=== PATIENT | female | born 1970 ===

== ENCOUNTER 2018-01-25 02:00 | Inpatient (IN) | payer MEDICARE ==
[2018-01-25] MEDS ORDERED: Ondansetron 4 MG/2 ML SDV IVPUSH PRN (02:11)
[2018-01-25] MEDS ORDERED: Lactated Ringers 1,000 ML IV SCH (02:15)
[2018-01-25] MEDS ORDERED: Naloxone 0.4 MG/ML SDV IVPUSH PRN (02:16)
[2018-01-25] MEDS: HYDROmorphone/Normal Saline 15 MG/30 ML PCA IV PRN (02:48)
[2018-01-25] MEDS ORDERED: Midazolam 1 MG/ML 2 ML SDV ONE (05:23)
[2018-01-25] MEDS ORDERED: fentaNYL 250 MCG/5 ML SDV ONE ×2 (05:23→07:35)
[2018-01-25] MEDS ORDERED: Neostigmine Methylsulfate 1 MG/ML 5 ML Syringe ONE (05:24)
[2018-01-25] MEDS ORDERED: Ondansetron 4 MG/2 ML SDV ONE (05:24)
[2018-01-25] MEDS ORDERED: Rocuronium 50 MG/5 ML Vial ONE (05:24)
[2018-01-25] MEDS ORDERED: Propofol 200 MG/20 ML SDV ONE (05:24)
[2018-01-25] MEDS ORDERED: Glycopyrrolate 0.2 MG/ML 5 ML MDV ONE (05:24)
[2018-01-25] MEDS ORDERED: Dexamethasone 4 MG/ML SDV ONE (05:24)
[2018-01-25] MEDS ORDERED: Succinylcholine 200 MG/10 ML MDV ONE (05:24)
[2018-01-25] MEDS ORDERED: cefOXitin 2 GM in Sodium Chloride 0.9% 50 ML IV ONE (06:00)
[2018-01-25] MEDS ORDERED: Meropenem 500 MG SDV ONE ×3 (07:04→07:48)
[2018-01-25] MEDS ORDERED: Lactated Ringers 1,000 ML ONE (07:25)
[2018-01-25] MEDS ORDERED: Lidocaine 0.4%/D5W 2 GM/500 ML BAG IV SCH (08:00)
[2018-01-25] MEDS ORDERED: Ropivacaine 41 ML, Dexamethasone 8 MG, EPINEPHrine 0.4 MG, Sodium Chloride 0.9% 36.6 ML NERVRT SCH ×4 (08:00)
[2018-01-25] MEDS ORDERED: Ketamine 500 MG/5 ML MDV IV SCH (08:00)
[2018-01-25] MEDS ORDERED: Lidocaine 2% 100 MG/5 ML Syringe IVPUSH ONE (08:00)
[2018-01-25] MEDS ORDERED: Metoclopramide 10 MG/2 ML SDV IVPUSH PRN (11:00)
[2018-01-25] MEDS ORDERED: hydrOXYzine HCl 100 MG/2 ML SDV IM PRN (11:00)
[2018-01-25] MEDS ORDERED: diphenhydrAMINE 50 MG/ML SDV IVPUSH PRN (11:00)
[2018-01-25] MEDS ORDERED: Labetalol 20 MG/4 ML Syringe IVPUSH PRN (11:00)
[2018-01-25] MEDS: Pantoprazole 40 MG Vial IVPUSH SCH (11:02)
[2018-01-25] MEDS: Gabapentin 250 MG/5 ML Solution ML 470 ML Bottle PO SCH ×2 (13:10→20:14)
[2018-01-25] MEDS: Acetaminophen Soln 650 MG/20.3 ML UD Cup PO SCH ×2 (13:10→19:50)
[2018-01-25] MEDS: cefOXitin 2 GM in Sodium Chloride 0.9% 50 ML IV SCH ×2 (13:10→17:43)
[2018-01-25] MEDS: Dextrose 5%-Lactated Ringers 1,000 ML IV SCH ×2 (13:10→22:17)
[2018-01-25] MEDS ORDERED: MVI, Adult with Vitamin K 10 ML, Thiamine 100 MG, Chromium/Copper/Mang/Selen/Zn 1 ML in... IV SCH ×4 (16:00)
[2018-01-25] MEDS: Heparin Sodium 5,000 Units/ML Vial SUBCUT SCH (19:53)
[2018-01-26] MEDS: cefOXitin 2 GM in Sodium Chloride 0.9% 50 ML IV SCH ×4 (01:13→18:30)
[2018-01-26] MEDS: Acetaminophen Soln 650 MG/20.3 ML UD Cup PO SCH ×4 (02:28→20:55)
[2018-01-26] MEDS ORDERED: Iohexol 647 MG/ML 50 ML SDV PO STA (03:23)
[2018-01-26] MEDS: Dextrose 5%-Lactated Ringers 1,000 ML IV SCH (04:37)
[2018-01-26] MEDS: Heparin Sodium 5,000 Units/ML Vial SUBCUT SCH ×2 (07:52→20:55)
[2018-01-26] MEDS: Celecoxib 200 MG Cap PO SCH (07:52)
[2018-01-26] MEDS ORDERED: Dextrose 5%-Lactated Ringers 1,000 ML IV SCH (07:56)
[2018-01-26] MEDS ORDERED: TOPIRAMATE 75 MG PO SCH (09:00)
[2018-01-26] MEDS ORDERED: Non-Formulary Medication 1 Each (Aripiprazole [Abilify] 15 MG) PO SCH (09:00)
[2018-01-26] MEDS ORDERED: Non-Formulary Medication 1 Each (Amphetamine/Dextroamphetamine [Adderall Xr] 30 MG) PO SCH (09:00)
--- NOTE | 2018-01-26 09:02 | CR ---
UGI wo KUB HISTORY: eval R -Y GBP FINDINGS: After administration of oral contrast, upright views were obtained. Post operative changes gastric bypass. Surgical drains in place. No evidence for leak. Contrast passes freely into proximal small bowel loops. A few loops of dilated bowel in the left upper quadrant are seen on the delayed im age. If needed, follow-up exam could be obtained.
--- NOTE | 2018-01-26 09:02 | PN ---
DATE OF SERVICE: 01/26/2018 SUBJECTIVE: Larisa Cuellar is postoperative day 1. Pain has been controlled. Vital signs have been stable. She has been up ambulating, has no other concerns or questions. She would like with exception of restarting all her home medications. OBJECTIVE: GENERAL: Larisa is a 47-year-old female. VITAL SIGNS: TPR is 97.2, 65, 16, blood pressure 117/56. HEENT: Negative. NECK: Supple. HEART: Regular rate and rhythm. LUNGS: Clear. ABDOMEN: Dressings dry and intact. Abdominal binder is on. EXTREMITIES: Without peripheral edema. ASSESSMENT: Exploratory laparotomy with resection and revision of the JJ component of the Agueda-en-Y gastric bypass surgery, drainage of peritonitis abscess and enterotomy for tube decompression of the small bowel for a small bowel obstruction secondary to volvulus of the JJ with removal of necrosis of the small bowel, satish-omentitis abscess, marked distention of proximal small bowel. Date of surgery 01/25/2018. PLAN: 1. Step 4 gastric bypass diet. 2. Decrease IV to 80 mL per hour. 3. Discontinue Anaya. 4. Medications restarted are Adderall XR 30 mg daily, Abilify 15 mg p.o. b.i.d., topiramate 75 mg p.o. daily, Adderall 20 mg p.o. with lunch, Cymbalta 90 mg at bedtime, levothyroxine 150 mcg at bedtime, melatonin 20 mg at bedtime, Suvorexant 20 mg at bedtime. 5. Good pulmonary toilet. 6. We will evaluate p.r.n. or in a.m. Fátima Grimaldo PA-C /[id number]
[2018-01-26] MEDS: Amphetamine/Dextroamphetamine Salts 10 MG Cap.ER PO SCH (09:19)
[2018-01-26] MEDS: Gabapentin 250 MG/5 ML Solution ML 470 ML Bottle PO SCH ×3 (09:20→21:07)
[2018-01-26] MEDS: SCOPOLAMINE PATCH CHECK TOP SCH (09:20)
[2018-01-26] MEDS: ARIPiprazole 10 MG Tab PO SCH ×2 (09:30→21:01)
[2018-01-26] MEDS: buPROPion 100 MG Tab PO SCH ×3 (09:30→21:09)
[2018-01-26] MEDS ORDERED: DEXTROAMPHETAMINE PO SCH (12:00)
[2018-01-26] MEDS ORDERED: Amphetamine/Dextroamphetamine Salts 10 MG Cap.ER PO SCH (12:00)
[2018-01-26] MEDS ORDERED: AMPHETAMINE PO SCH (12:00)
[2018-01-26] MEDS: Pantoprazole 40 MG Vial IVPUSH SCH (13:18)
[2018-01-26] MEDS ORDERED: MVI, Adult with Vitamin K 10 ML, Thiamine 100 MG, Chromium/Copper/Mang/Selen/Zn 1 ML in... IV SCH ×4 (16:00)
[2018-01-26] MEDS: HYDROmorphone/Normal Saline 15 MG/30 ML PCA IV PRN (20:53)
[2018-01-26] MEDS ORDERED: DULOXETINE 90 MG PO SCH (21:00)
[2018-01-26] MEDS ORDERED: SUVOREXANT 20 MG PO SCH (21:00)
[2018-01-26] MEDS ORDERED: Non-Formulary Medication 1 Each (Melatonin [Melatonin] 20 MG) PO SCH (21:00)
[2018-01-26] MEDS ORDERED: DULoxetine 30 MG Cap PO SCH (21:00)
[2018-01-26] MEDS ORDERED: Melatonin 3 MG Tab PO SCH (21:00)
[2018-01-26] MEDS ORDERED: diphenhydrAMINE 25 MG Cap PO SCH (21:00)
[2018-01-26] MEDS ORDERED: Topiramate 25 MG Tab PO SCH (21:00)
[2018-01-26] MEDS ORDERED: LEVOTHYROXINE 150 MCG PO SCH (21:00)
[2018-01-26] MEDS: Lactobacillus Rhamnosus GG (Probiotic) Cap PO SCH (21:02)
[2018-01-27] MEDS: cefOXitin 2 GM in Sodium Chloride 0.9% 50 ML IV SCH ×2 (00:46→06:33)
[2018-01-27] MEDS: Acetaminophen Soln 650 MG/20.3 ML UD Cup PO SCH ×2 (01:19→09:03)
[2018-01-27] MEDS: Heparin Sodium 5,000 Units/ML Vial SUBCUT SCH (07:55)
[2018-01-27] MEDS: Celecoxib 200 MG Cap PO SCH (07:56)
[2018-01-27] MEDS: Amphetamine/Dextroamphetamine Salts 10 MG Cap.ER PO SCH (08:02)
[2018-01-27] MEDS: SCOPOLAMINE PATCH CHECK TOP SCH (08:05)
[2018-01-27] MEDS ORDERED: Acetaminophen/HYDROcodone 325-5 MG Tab PO PRN (08:08)
[2018-01-27] MEDS ORDERED: Cyanocobalamin (Vitamin B12) 1,000 MCG/ML SDV IM ONE (09:00)
[2018-01-27] MEDS: ARIPiprazole 10 MG Tab PO SCH (09:03)
[2018-01-27] MEDS: Gabapentin 250 MG/5 ML Solution ML 470 ML Bottle PO SCH (09:03)
[2018-01-27] MEDS: Lactobacillus Rhamnosus GG (Probiotic) Cap PO SCH (09:03)
[2018-01-27] MEDS: buPROPion 100 MG Tab PO SCH (09:04)
--- NOTE | 2018-01-28 08:38 | DISCH ---
ADMISSION DIAGNOSES: Partial small bowel obstruction, status post Agueda-en-Y gastric bypass surgery, unspecified surgical malabsorption, B12 deficiency, major depressive disorder, hypothyroidism, and history of Clostridium difficile. DISCHARGE DIAGNOSES: Exploratory laparotomy with resection and revision of the JJ component of the Agueda-en-Y gastric bypass surgery, drainage of peritonitis abscess and enterotomy for tube decompression for the small bowel for a small bowel obstruction secondary to volvulus of the JJ with removal of necrosis of the small bowel, staish-omentitis abscess, marked distention of proximal small bowel. Date of surgery 01/25/2018. HISTORY: Larisa Cuellar was transferred from [place], [place], with a partial small bowel obstruction. After preoperative evaluation and discussion of possible risks and possible complications, she wished to proceed with surgical procedure. HOSPITAL COURSE: Larisa had her surgery on 01/25/2018. She had no operative complications. On postop day #1, she was started on step-4 gastric bypass diet. Her home medications were restarted. She remained to be on the [employer]. On postop day #2, vital signs were stable, her pain was well managed, activity was good, and she was able to be discharged to home. PHYSICAL EXAMINATION: GENERAL: Larisa Cuellar is a 47-year-old female. She is alert and orientated. VITAL SIGNS: Weight is 178 pounds 12.7 ounces. Height 5 feet 2.9 inches. TPR is 97.6, 80, 16, and blood pressure 110/65. HEENT: Negative. NECK: Supple. HEART: Regular rate and rhythm. LUNGS: Clear. ABDOMEN: Incision blanca intact. No redness or drainage. FRANCO drain in midline is intact and draining a light red serosanguineous drainage. EXTREMITIES: Without peripheral edema. DISPOSITION: Discharged to home. CONDITION: Stable and improving. FOLLOWUP APPOINTMENT: Fátima Grimaldo PA-C, at [facility] on 02/03/2018 at 10:15 a.m. DISCHARGE MEDICATIONS: New Medications: 1. [place] 5/325 mg 1 to 2 every 4 hours p.r.n. pain, #40. 2. Milk of magnesia 30 mL, two were sent home with the patient to take one today when she gets home and one tomorrow. 3. Celebrex 200 mg oral daily, #14. 4. She is to resume her home medications. 5. Discontinue taking Toradol, iron supplement, vitamin B12, calcium, and multivitamin. DISCHARGE DIET: Step-4 gastric bypass diet. Drink 8 to 10 glasses of water a day. ACTIVITY: No lifting greater than 10 pounds for 6 weeks[address] Driving, do not drive while on pain medication. Shower/bathing, may shower. No tub bathing or swimming. DISCHARGE INSTRUCTIONS: Notify provider of any fever, increased pain, nausea, or vomiting. Keep site clean and dry. Wear abdominal binder for 6 weeks and then as tolerated. Special instruction, use incentive spirometer 10 times every hour while awake for 2 weeks. Empty, strip, measure, and record FRANCO drains 4 times a day and when half full.
--- NOTE | 2018-01-30 11:25 | OR ---
DATE OF PROCEDURE: 01/25/2018 PREOPERATIVE DIAGNOSIS: Small-bowel obstruction. POSTOPERATIVE DIAGNOSES: 1. 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 2. Perianastomotic abscess. 3. Marked distention of proximal small bowel. OPERATIVE PROCEDURE: Exploratory laparotomy with: 1. Resection and revision of jejunojejunostomy component of Agueda-en-Y gastric bypass (34972). 2. Drainage of perianastomotic intraabdominal abscess(89302). 3. Enterotomy for tube decompression of the small bowel (88625). ANESTHESIA: General. INDICATIONS FOR PROCEDURE: This is a 47-year-old status post Agueda-en-Y gastric bypass in 2004, presenting with a picture of a small-bowel obstruction likely related to volvulus. She was transferred from [place] overnight and is undergoing exploratory laparotomy presently. The potential risks of the procedure including bleeding, infection, injury to the underlying viscera, possible leaks from GI tract closures or recurrence of the problem over time, and lastly remote possibility of cardiopulmonary, septic, or hemorrhagic complications leading to were all discussed, and the patient wishes to proceed. DETAILS OF PROCEDURE: The patient was taken to the operating room and placed in a supine position. After general endotracheal anesthesia was induced, the abdomen was prepped and draped. Of note at the conclusion of the procedure, when they became available, bilateral subcostal transversus abdominis plane blocks were placed with ultrasound guidance and using the standard solution. After the area was prepped and draped, a midline incision from the umbilicus roughly a handsbreadth upward toward the xiphoid was made and carried down through the full-thickness abdominal wall. Upon entering the peritoneal cavity, the patient was noted to have some slightly blood-tinged fluid. The area of dissection was easily identified, and this was an area of focal intense volvulus in the area of the jejunojejunostomy. The volvulus was fairly localized, but was tight enough that there was significant hemorrhagic necrosis of a portion of the small bowel involved in the volvulus. There was a perianastomotic abscess present, which at this time was evacuated and cultures then obtained. At this point, 3 components of the jejunojejunostomy were divided with a CK stapler and the underlying mesentery of those sets of bowel divided with mesenteric loads and the specimen delivered from the field. The proximal small bowel was quite distended and to facilitate more safe anastomosis and facilitate less tense abdominal wall closure into the biliopancreatic limb which was primarily the area distended, a small enterotomy was made and the [place] sump tube passed. The bypassed portion of the stomach was also quite distended, and this was massaged to facilitate most of that fluid getting into the duodenum and subsequently being aspirated via the suction catheter as well. Upon removal of that, the area was briefly clamped off. The patient had a nasogastric tube in place, and this was manipulated into the Agueda limb and placed on suction and moved up and down through the Agueda limb until all fluid from that area had been evacuated as well. GI tract continuity was then re-established with revision of the jejunojejunostomy. Initially, the bowel that had been the end of the biliopancreatic limb was anastomosed to what had been the beginning of the common limb in a [id number] enteroenterostomy with 60 mm CK stapler. The common opening was then closed transversely with the same stapler, angles of anastomosis were approximated with a 3-0 Vicryl stitch. The patient at this point preoperatively felt that some additional weight loss would be beneficial and was aware that the lengthening of the limbs creating more malabsorptive procedure may result in some frequent loose bowel movements and increased risk of malnutrition, and if any of those continued should be revised over the Agueda limbs, and wished to proceed in that direction if that opportunity arose. Given this, the Agueda limb was marked at this point to be 80cm. We then moved back from the ileocecal valve 280 cm, giving the patient a total alimentary length of 360 cm. At that level, a [id number] enteroenterostomy was accomplished with an internal firing of the CK stapler and the common opening likewise closed transversely, the angles anastomosed and were reinforced with some 3-0 Vicryl stitch, and the mesenteric defect approximated with a 2-0 silk stitch. Of note, the biliopancreatic limb was printed out to be 210 cm at this time. At this point, no further problems were noted. The abdomen was irrigated with meropenem- containing saline solution. The midline fascia was approximated with a #2 Vicryl stitch. The skin and subcutaneous tissue were felt to be at risk for a seroma formation, a 10-Welsh round Manoj-Good drain was placed through placed a stab wound inferior to the main incision, and the incision then closed with 2 layers of 3-0 Vicryl stitch deep and blanca for the skin. The drain was affixed with a 4-0 Vicryl stitch as well, and the patient taken to the recovery room in satisfactory condition. There were no evident complications. Mathew Hartman MD /[id number]
== END 2018-01-27 11:50 | disposition home or self-care (01) | DRG 344 ==
LOC: JP.2SS 02:00
PROVIDERS: ADMIT Surgery; ATTEND Surgery
PROC: 0DBA0ZX Excision of Jejunum, Open Approach, Diagnostic (ICD-10-PCS; principal; 2018-01-25)
PROC: 0W9G0ZX Drainage of Peritoneal Cavity, Open Approach, Diagnostic (ICD-10-PCS; 2018-01-25)
PROC: 0D980ZZ Drainage of Small Intestine, Open Approach (ICD-10-PCS; 2018-01-25)
PROC: 3E0T3BZ Introduction of Anesthetic Agent into Peripheral Nerves and Plexi, Percutaneous Approach (ICD-10-PCS; 2018-01-25)
DX: K56.2 Volvulus (principal); K55.029 Acute infarction of small intestine, extent unspecified; K63.0 Abscess of intestine; K91.2 Postsurgical malabsorption, not elsewhere classified; K63.89 Other specified diseases of intestine; Z98.84 Bariatric surgery status; Z98.0 Intestinal bypass and anastomosis status; E53.8 Deficiency of other specified B group vitamins; E03.9 Hypothyroidism, unspecified; F41.9 Anxiety disorder, unspecified; F31.70 Bipolar disorder, currently in remission, most recent episode unspecified; F42.9 Obsessive-compulsive disorder, unspecified; F43.10 Post-traumatic stress disorder, unspecified; E78.5 Hyperlipidemia, unspecified; M25.561 Pain in right knee; G89.29 Other chronic pain; F40.01 Agoraphobia with panic disorder; F17.210 Nicotine dependence, cigarettes, uncomplicated
CPT/HCPCS: 36415; 74240; 74240-26; 80053; 82607; 82728; 82746; 82962; 83735; 84100; 85025; 87070; 87075; 87205; 94762; A9270-GY; C9113; J0171; J0330; J0694; J1100; J1170; J1644; J2001; J2185; J2250; J2405; J2704; J2710; J2795; J3010; J3410; J3411; J3420; J7030; J7042; J7050; J7120; Q9967